=== PATIENT | female | born 1995 | race Two or more races ===

== ENCOUNTER 2022-10-07 21:59 | Emergency (ER) | payer MEDICAID ==
[~2022-10-07] VITALS: Ht 170.2 cm; Wt 56.2 kg
[2022-10-07 23:06] LABS: PREGNANCY TEST URINE QUAL NEGATIVE (NEGATIVE)
[2022-10-07 23:16] LABS: APPEARANCE,URINE CLEAR (CLEAR); BILIRUBIN,URINE NEGATIVE (NEGATIVE); BLOOD, URINE 3+ Ery/uL (NEGATIVE); COLOR,URINE YELLOW (YELLOW); KETONES,URINE NEGATIVE (NEGATIVE); LEUKOCYTE ESTERASE ,URINE NEGATIVE (NEGATIVE); NITRITE, URINE POSITIVE (NEGATIVE); PROTEIN,URINE NEGATIVE (NEGATIVE); UGLUCOSE NEGATIVE (NEGATIVE); UROBILINOGEN,URINE 0.2 EU/dL (0.2)
[2022-10-07 23:41] LABS: ADD URINE CULTURE YES; BACTERIA,URINE Moderate /HPF (None Seen); SQUAMOUS EPITHELIAL CELL,UR Rare /HPF (None Seen)
[2022-10-07 23:46] LABS: BASOPHILS % (AUTO) 0.6 % (0.0-2.0); EOSINOPHILS # (AUTO) 0.5 K/uL (0.0-0.7); EOSINOPHILS % (AUTO) 7.8 % (0.0-6.0); HEMATOCRIT 40 % (33-45); HEMOGLOBIN 13.4 g/dL (11.5-14.8); LYMPHOCYTES # (AUTO) 2.5 K/uL (0.8-4.8); LYMPHOCYTES % (AUTO) 35.5 % (20.0-44.0); MEAN CORPUSCULAR HEMOGLOBIN 31 PG (26.0-33.0); MEAN CORPUSCULAR HGB CONC 33 g/dl (31.0-36.0); MEAN CORPUSCULAR VOLUME 94 fL (82-100); MONOCYTES # (AUTO) 0.4 K/uL (0.1-1.30); MONOCYTES % (AUTO) 6.1 % (2.0-12.0); NEUTROPHILS # (AUTO) 3.5 K/uL (1.8-8.9); PLATELET COUNT (AUTO) 241 K/uL (150-450); RED BLOOD CELL COUNT(AUTO) 4.28 MIL/uL (4.0-5.2); RED CELL DISTRIBUTION WIDTH 12.5 % (11.5-15.0)
[2022-10-07 23:59] LABS: CALCIUM, SERUM 9.4 mg/dL (8.5-10.1); CREATININE 0.8 mg/dL (0.6-1.3); POTASSIUM 4.4 mmol/L (3.5-5.1)
[2022-10-08 01:32] VITALS: BP 110/81; TEMP 98; O2SAT 98
== END 2022-10-08 01:32 | disposition home or self-care (01) ==
LOC: ER 21:59
DX: R10.2 Pelvic and perineal pain (principal)
CPT/HCPCS: 36415; 76856-TC; 80048-TC; 81001; 84702-TC; 84703-TC; 85025-TC; 87086-TC

== ENCOUNTER 2022-10-15 08:06 | Emergency (ER) | payer MEDICAID ==
[~2022-10-15] VITALS: Ht 167.6 cm; Wt 59.0 kg
[2022-10-15] MEDS ORDERED: PSEUDOEPHEDRINE HCL 30 MG TABLET ONE ×2 (08:46→09:21)
[2022-10-15] MEDS ORDERED: IBUPROFEN 400 MG TABLET ONE (08:46)
[2022-10-15] MEDS ORDERED: GUAIFENESIN/D-METHORPHAN HB 5 ML UDC ONE (08:46)
[2022-10-15] MEDS ORDERED: GUAIFENESIN/D-METHORPHAN HB 5 ML UDC PO ONE (09:00)
[2022-10-15] MEDS ORDERED: PSEUDOEPHEDRINE HCL 30 MG TABLET PO ONE (09:00)
[2022-10-15] MEDS ORDERED: IBUPROFEN 400 MG TABLET PO ONE (09:00)
[2022-10-15] MEDS ORDERED: PSEU120T83 PO (09:53)
[2022-10-15] MEDS ORDERED: GUAI1TBM19 PO (09:53)
[2022-10-15] MEDS ORDERED: KETO10TA2 PO (09:53)
[2022-10-15 10:01] VITALS: BP 98/59; TEMP 98.9; O2SAT 100
== END 2022-10-15 10:02 | disposition home or self-care (01) ==
LOC: ER 08:10
DX: B34.9 Viral infection, unspecified (principal); Z20.822 Contact with and (suspected) exposure to COVID-19
CPT/HCPCS: 99284; 87426; 87804 ×2; C9803